=== PATIENT | male | born 1995 | race Caucasian/White ===

== ENCOUNTER → 2023-11-16 | Outpatient (REF) | payer OTHER, SELFPAY | LOC: DHSLP | PROVIDERS: ATTENDING PHYSICIAN Physician Assistant | DX: G47.33 Obstructive sleep apnea (adult) (pediatric) (principal) | CPT/HCPCS: 95800 ==

== ENCOUNTER → 2023-12-18 13:57 | Outpatient (REF) | payer OTHER, SELFPAY | LOC: RAD 13:57 | PROVIDERS: ATTENDING PHYSICIAN Physician Assistant | DX: R06.83 Snoring (principal); R05.1 Acute cough | CPT/HCPCS: 71046 ==